=== PATIENT | male | born 1980 | race American Indian/Alaskan Native ===

== ENCOUNTER 2018-01-14 03:39 | Observation (INO) | payer OTHER ==
[2018-01-14] MEDS ORDERED: Sodium Chloride 0.9% 1,000 ML IV STA (04:01)
--- NOTE | 2018-01-14 04:15 | ED PDOC ---
Arrival/HPI - General Chief Complaint: Abdominal Pain Time Seen by Provider: 01/14/18 04:01 Historian: Patient - History of Present Illness Narrative History of Present Illness (Text): 01/14/18 03:50 37 year old male with no significant past medical history, presents to the emergency department complaining of abdominal pain that began 5 days ago. Patient states the pain began at the upper quadrant of the abdomen and now the pain is focused on the lower quadrant of the abdomen. The pain is worse in the right lower quadrant. Patient denies any fever, chills, chest pain, shortness of breath, nausea, vomiting, diarrhea, constipation, bloody stool, urinary symptoms, back pain, neck pain, headache, dizziness, or any other complaints. Time/Duration: 24 hours Symptom Onset: Sudden Symptom Course: Unchanged Activities at Onset: Light Context: Home Past Medical History - Provider Review Nursing Documentation Reviewed: Yes - Infectious Disease Hx of Infectious Diseases: None - Psychiatric Hx Substance Use: No - Surgical History Other/Comment: rt knee sx - Anesthesia Hx Anesthesia: Yes Hx Anesthesia Reactions: No Family/Social History - Physician Review Nursing Documentation Reviewed: Yes Family/Social History: No Known Family HX Smoking Status: Never Smoked Hx Alcohol Use: Yes Hx Substance Use: No Allergies/Home Meds Allergies/Adverse Reactions: Allergies No Known Allergies Allergy (Verified 02/22/16 12:09) Home Medications: Home Meds Medication Instructions Recorded Confirmed No Known Home Med 01/14/18 01/14/18 Review of Systems - Physician Review All systems were reviewed & negative as marked: Yes - Review of Systems Constitutional: absent: Fevers, Other (Chills) Respiratory: absent: SOB Cardiovascular: absent: Chest Pain Gastrointestinal: Abdominal Pain. absent: Constipation, Diarrhea, Nausea, Vomiting, Hematochezia Genitourinary Male: absent: Dysuria, Frequency, Hematuria Musculoskeletal: absent: Back Pain, Neck Pain Neurological: absent: Headache, Dizziness Physical Exam Vital Signs Reviewed: Yes Vital Signs Temp Pulse Resp BP Pulse Ox 01/14/18 03:47 98.1 F 72 18 158/93 H 97 Temperature: Afebrile Blood Pressure: Hypertensive Pulse: Regular Respiratory Rate: Normal Appearance: Positive for: Well-Appearing, Non-Toxic, Comfortable Pain Distress: None Mental Status: Positive for: Alert and Oriented X 3 - Systems Exam Head: Present: Atraumatic, Normocephalic Pupils: Present: PERRL Extroacular Muscles: Present: EOMI Conjunctiva: Present: Normal Mouth: Present: Moist Mucous Membranes Neck: Present: Normal Range of Motion Respiratory/Chest: Present: Clear to Auscultation, Good Air Exchange. No: Respiratory Distress, Accessory Muscle Use Cardiovascular: Present: Regular Rate and Rhythm, Normal S1, S2. No: Murmurs Abdomen: Present: Tenderness (Right Lower Quadrant tenderness ), Normal Bowel Sounds. No: Distention, Peritoneal Signs Back: Present: Normal Inspection Upper Extremity: Present: Normal Inspection. No: Cyanosis, Edema Lower Extremity: Present: Normal Inspection. No: Edema Neurological: Present: GCS=15, CN II-XII Intact, Speech Normal Skin: Present: Warm, Dry, Normal Color. No: Rashes Psychiatric: Present: Alert, Oriented x 3, Normal Insight, Normal Concentration Medical Decision Making ED Course and Treatment: 01/14/18 04:17 Impression: 37 year old male presents complaining of abdominal pain that began 5 days ago. Pain began at the upper quadrant of abdomen and now is in the lower quadrant of the abdomen. Pain worse in the RLQ. Plan: -- CT Abd & Pelvis IV Contrast -- Labs -- Morphine, IV Fluids -- Urine Culture -- Urinalysis -- Reassess and disposition Progress Notes: 01/14/18 05:35 On reevaluation, patient is still in pain and also began to vomit. Ordered Morphine and Reglan. EXAM: CT Abdomen and Pelvis With Intravenous Contrast Dictated and Authenticated by: Lauryn Cazares MD 01/14/2018 5:56 AM IMPRESSION: Findings consistent with acute appendicitis. No perforation or abscess. Too small to characterize low-density liver lesions. No followup necessary. Small fat containing umbilical hernia 01/14/18 06:12 Case discussed with Walking Dragline Oiler and Dr. Cotto who is aware and agrees with the plan. Accepts patient into his service. - Lab Interpretations Lab Results: 01/14/18 04:30 01/14/18 04:30 Lab Results 01/14/18 04:30: Sodium 145, Potassium 3.9, Chloride 106, Carbon Dioxide 25, Anion Gap 18, BUN 13, Creatinine 1.0, Est GFR ( Amer) > 60, Est GFR (Non- Af Amer) > 60, Random Glucose 122 H, Calcium 9.2, Magnesium 1.9, Total Bilirubin 1.5 H, AST 23, ALT 40, Alkaline Phosphatase 63, Total Protein 7.7, Albumin 4.2, Globulin 3.5, Albumin/Globulin Ratio 1.2, Lipase 50 01/14/18 04:30: PT 11.2, INR 0.97, APTT 25.6 01/14/18 04:30: WBC 7.8, RBC 4.93, Hgb 14.2, Hct 40.3 L, MCV 81.7, MCH 28.8, MCHC 35.2, RDW 13.3, Plt Count 131, MPV 12.2 H, Gran % 71.6 H, Lymph % (Auto) 18.8 L, [place] % (Auto) 8.1 H, Eos % (Auto) 1.4 L, Baso % (Auto) 0.1, Gran # 5.60 , Lymph # (Auto) 1.5, [place] # (Auto) 0.6, Eos # (Auto) 0.1, Baso # (Auto) 0.01 I have reviewed the lab results: Yes - RAD Interpretation Radiology Orders: 01/14/18 04:02 ABD & PELVIS IV CONTRAST ONLY [CT] Stat - Medication Orders Current Medication Orders: Discontinued Medications Sodium Chloride (Sodium Chloride 0.9%) 1,000 mls @ 1,000 mls/hr IV .Q1H STA Stop: 01/14/18 05:00 Last Admin: 01/14/18 04:35 Dose: 1,000 mls/hr eMAR Start Stop Document 01/14/18 04:35 JOL (Rec: 01/14/18 04:36 JOL [id number]) Intravenous Solution Start Date 01/14/18 Start Time 04:36 End Date 01/14/18 End time 05:36 Total Infusion Time 60 Metoclopramide HCl (Reglan) 10 mg IVP STAT STA Stop: 01/14/18 05:35 Last Admin: 01/14/18 05:48 Dose: 10 mg IVP Administration Document 01/14/18 05:48 OCS (Rec: 01/14/18 05:48 OCS [id number]) Charges for Administration # of IVP Administrations 1 Morphine Sulfate (Morphine) 2 mg IVP STAT STA Stop: 01/14/18 04:21 Last Admin: 01/14/18 04:36 Dose: 2 mg IVP Administration Document 01/14/18 04:36 JOL (Rec: 01/14/18 04:36 [id number] Charges for Administration # of IVP Administrations 1 Morphine Sulfate (Morphine) 2 mg IVP STAT STA Stop: 01/14/18 05:35 Last Admin: 01/14/18 05:47 Dose: 2 mg IVP Administration Document 01/14/18 05:47 OCS (Rec: 01/14/18 05:48 OCS [id number]) Charges for Administration # of IVP Administrations 1 Ondansetron HCl (Zofran Inj) 4 mg IVP STAT STA Stop: 01/14/18 04:31 Last Admin: 01/14/18 04:36 Dose: 4 mg IVP Administration Document 01/14/18 04:36 JOL (Rec: 01/14/18 04:36 JOL [id number]) Charges for Administration # of IVP Administrations 1 - Scribe Statement The provider has reviewed the documentation as recorded by the Marivel Charles Provider Scribe Attestation: All medical record entries made by the Scribcharlotte were at my direction and personally dictated by me. I have reviewed the chart and agree that the record accurately reflects my personal performance of the history, physical exam, medical decision making, and the department course for this patient. I have also personally directed, reviewed, and agree with the discharge instructions and disposition. Disposition/Present on Arrival - Present on Arrival Any Indicators Present on Arrival: No History of DVT/PE: No History of Uncontrolled Diabetes: No Urinary Catheter: No History of Decub. Ulcer: No History Surgical Site Infection Following: None - Disposition Have Diagnosis and Disposition been Completed?: Yes Diagnosis: Acute appendicitis Disposition: HOSPITALIZED Disposition Time: 06:00 Condition: FAIR Forms: [email or web address] ([place])
[2018-01-14] MEDS ORDERED: Morphine 2 mg/2 mL syringe IVP STA ×2 (04:20→05:34)
[2018-01-14 04:49] LABS: GRAN % 71.6 % (50.0-68.0); HEMOGLOBIN 14.2 g/dL (14.0-18.0); MEAN CELL VOLUME 81.7 fl (80.0-105.0); MEAN CORPUSCULAR HEMOGLOBIN 28.8 pg (25.0-35.0); MEAN CORPUSCULAR HGB CONC 35.2 g/dl (31.0-37.0); MEAN PLATELET VOLUME 12.2 fl (7.0-11.0); RBC 4.93 10^6/uL (3.5-6.1); RED CELL DISTRIBUTION WIDTH 13.3 % (11.5-14.5); WHITE BLOOD COUNT 7.8 10^3/ul (4.5-11.0)
[2018-01-14 04:50] LABS: BASO # 0.01 K/mm3 (0.0-2.0); BASO % 0.1 % (0.0-3.0); EOS # 0.1 (0.0-0.7); EOS % 1.4 % (1.5-5.0); GRAN # 5.6 (1.4-6.5); LYMPH # 1.5 (1.2-3.4); LYMPH % 18.8 % (22.0-35.0); MONO # 0.6 (0.1-0.6); MONO % 8.1 % (1.0-6.0)
[2018-01-14 04:56] LABS: ALB/GLOB RATIO 1.2 (1.1-1.8); ALBUMIN 4.2 g/dL (3.0-4.8); ALT/SGPT 40 U/L (7-56); AST/SGOT 23 U/L (17-59); BLOOD UREA NITROGEN 13 mg/dL (7-21); CALCIUM 9.2 mg/dL (8.4-10.5); GFR AFRICAN-AMERICAN > 60; GFR NON-AFRICAN AMERICAN > 60; LIPASE 50 U/L (23-300)
[2018-01-14 05:30] LABS: INR 0.97 (0.93-1.08); PARTIAL THROMBOPLASTIN TIME 25.6 Seconds (25.1-36.5); PROTHROMBIN TIME 11.2 SECONDS (9.4-12.5)
--- NOTE | 2018-01-14 05:56 | CT ---
EXAM: CT Abdomen and Pelvis With Intravenous Contrast CLINICAL HISTORY: 37 years old, male; Pain; Abdominal pain; Localized; Lower; Patient HX: Pain lower abdomen, per pt most pain is in the rlq; Additional info: Rlq tenderness TECHNIQUE: Axial computed tomography images of the abdomen and pelvis with intravenous contrast. All CT scans at this facility use one or more dose reduction techniques, viz.: automated exposure control; ma/kV adjustment per patient size (including targeted exams where dose is matched to indication; i.e. head); or iterative reconstruction technique. Coronal and sagittal reformatted images were created and reviewed. CONTRAST: 150 mL of omnipaque 350 administered intravenously. COMPARISON: No relevant prior studies available. FINDINGS: Lung bases: Unremarkable. No mass. No consolidation. ABDOMEN: Liver: There are 3 mm too small to characterize low-density lesions. No mass. Gallbladder and bile ducts: Unremarkable. No calcified stones. No ductal dilation. Pancreas: Unremarkable. No mass. No ductal dilation. Spleen: Unremarkable. No splenomegaly. Adrenals: Unremarkable. No mass. Kidneys and ureters: The right kidney is normal. 1.4 cm left renal cyst. No solid mass. No hydronephrosis. Stomach and bowel: Unremarkable. No obstruction. No mucosal thickening. There is no wall thickening or pericolonic stranding to suggest colitis. PELVIS: Appendix: The appendix demonstrates marked diffuse distention measuring up to 2.3 cm, consistent with severe acute appendicitis.There is moderate inflammatory stranding. There is a small amount of free fluid in the right lower quadrant mesentery. There are phleboliths present. No perforation or abscess. Bladder: Unremarkable. No mass. Reproductive: Unremarkable as visualized. ABDOMEN and PELVIS: Intraperitoneal space: No free air. No significant fluid collection. Bones/joints: No acute fracture. No dislocation. Soft tissues: Unremarkable. Vasculature: Unremarkable. No abdominal aortic aneurysm. Lymph nodes: Unremarkable. No enlarged lymph nodes. There is a fat-containing umbilical hernia. IMPRESSION: Findings consistent with acute appendicitis. No perforation or abscess. Too small to characterize low-density liver lesions. No followup necessary. Small fat containing umbilical hernia.
[2018-01-14] MEDS ORDERED: Piperacill/Tazo 4.5gm in NS 4.5 GM/100 ML BAG IVPB STA (06:11)
[2018-01-14] MEDS ORDERED: Sodium Chloride 0.9% 1,000 ML IV ONE (06:17)
[2018-01-14] MEDS ORDERED: Morphine 4 mg/ml ISec IVP STA (06:47)
--- NOTE | 2018-01-14 07:18 | CP.PCM.HP ---
History of Present Illness - History of Present Illness History of Present Illness: Surgery: Dr. Cotto Pt is a 37M with no other PMHx who presented to [facility] with complaints of abdominal pain x 3 days. Pt states he started having epigastric pain on Tuesday with associated N/V that improved with some advil, however yesterday pain localized to the RLQ & woke him up from sleep. He describes the pain as gnawing, sharp pain in the RLQ with radiation to the LRQ. States he has never had a similar episode in the past. He denies vomiting but admits to nausea. Denies F/C, diarrhea, chest pain or SOB. In the ER, pt had CT abdomen/pelvis which showed dilated appendix with surrounding inflammation and large appendicolith. Surgery called to evaluate. Currently pt is resting in ER bed. States pain is still present & about the same in intensity. Denies any other complaints. PMHx: denies PSHx: R knee surgery SocialHx: deneis smoking/drugs, social EtOH FamHx: not relevant All: denies Present on Admission - Present on Admission Any Indicators Present on Admission: No Review of Systems - Review of Systems All systems: reviewed and no additional remarkable complaints except (as per HPI ) Past Patient History - Infectious Disease Hx of Infectious Diseases: None - Past Social History Smoking Status: Never Smoked - PSYCHIATRIC Hx Substance Use: No - SURGICAL HISTORY Other/Comment: rt knee sx - ANESTHESIA Hx Anesthesia: Yes Hx Anesthesia Reactions: No Meds Allergies/Adverse Reactions: Allergies Allergy/AdvReac Type Severity Reaction Status Date / Time No Known Allergies Allergy Verified 02/22/16 12:09 Physical Exam - Constitutional Appears: Well, No Acute Distress - Head Exam Head Exam: ATRAUMATIC, NORMOCEPHALIC - Eye Exam Eye Exam: Normal appearance - ENT Exam ENT Exam: Mucous Membranes Moist - Respiratory Exam Respiratory Exam: NORMAL BREATHING PATTERN - Cardiovascular Exam Cardiovascular Exam: RRR - GI/Abdominal Exam GI & Abdominal Exam: Guarding, Rebound (LLQ ), Soft, Tenderness (RLQ ). absent : Distended - Extremities Exam Extremities exam: Positive for: full ROM, pedal pulses present - Neurological Exam Neurological exam: Alert, Oriented x3 - Skin Skin Exam: Dry, Warm Results - Vital Signs Recent Vital Signs: Last Vital Signs Temp 98.4 F 01/14/18 06:19 Pulse 67 01/14/18 06:19 Resp 18 01/14/18 06:19 BP 150/94 H 01/14/18 06:19 Pulse Ox 96 01/14/18 06:19 - Labs Result Diagrams: 01/14/18 04:30 01/14/18 04:30 - Imaging and Cardiology CT scan - abdomen Status: Image reviewed by me, Report reviewed by me Assessment & Plan - Assessment and Plan (Free Text) Assessment: 37M with acute appendicitis Plan: - NPO, IVF - IV ABX - OR today for lap appy - d/w Dr. Yadiel Koenig, PGY-3
[2018-01-14] MEDS ORDERED: Morphine 4 mg/ml ISec IVP PRN ×2 (07:26→11:16)
[2018-01-14] MEDS ORDERED: Lactated Ringer's 1,000 ML IV SCH ×2 (07:30→11:15)
[2018-01-14 07:34] LABS: URINE BILIRUBIN NEGATIVE (NEGATIVE); URINE BLOOD TRACE-INTACT (NEGATIVE); URINE GLUCOSE (UA) NEGATIVE (NEGATIVE); URINE LEUKOCYTE ESTERASE NEGATIVE Leu/uL (NEGATIVE); URINE PROTEIN NEGATIVE mg/dL (<30 mg/dL); URINE UROBILINOGEN 0.2 E.U./dL (<1 E.U./dL)
[2018-01-14 07:35] LABS: URINE APPEARANCE CLEAR (CLEAR); URINE COLOR LIGHT YELLOW (YELLOW)
[2018-01-14 07:59] VITALS: BMI 36.6
[2018-01-14 08:05] LABS: URINE RBC NEGATIVE /hpf (0-2); URINE WBC 0 - 2 /hpf (0-6)
[2018-01-14] MEDS ORDERED: Bupivacaine 0.5% Inj(30mL) ONE (09:03)
[2018-01-14] MEDS ORDERED: Propofol 10 mg/ml Inj (20 ML) ONE (09:20)
[2018-01-14] MEDS ORDERED: Rocuronium 10 mg/ml (5 ml) ONE (09:20)
[2018-01-14] MEDS ORDERED: Midazolam 2 MG/2 ML VIAL ONE (09:20)
[2018-01-14] MEDS ORDERED: Bupivacaine 0.5% Inj(30mL) IJ ONE (10:10)
[2018-01-14] MEDS ORDERED: Neostigmine Methylsulfate 3mg/3ml Syringe IV ONE (10:49)
[2018-01-14] MEDS ORDERED: Glycopyrrolate 0.2 mg/ml (2ml vial) ONE (10:50)
[2018-01-14] MEDS ORDERED: HYDROmorphone 0.5 mg/0.5 ml ISec IVP PRN ×2 (11:13→11:18)
--- NOTE | 2018-01-14 11:14 | PCM.SURG1 ---
Surgeon's Initial Post Op Note - Surgeon's Notes Surgeon: Dr. Cotto Horse Show Judge: Marie Carmen, PGY2 Type of Anesthesia: General Endo Anesthesia Administered By: Dr. Pedroza and Dr. Taylor Pre-Operative Diagnosis: Acute appendicitis Operative Findings: pre-op clear fluid in the pelvis, no fecal fluid, a dilated , erythematous appendix with hard mass inside the appendiceal lumen at the base of the appendix. See full operative report Post-Operative Diagnosis: same Operation Performed: laparoscopic appendectomy Specimen/Specimens Removed: appendix Estimated Blood Loss: EBL {In ML}: 10 Post-Op Condition: Fair Date of Surgery/Procedure: 01/14/18 Time of Surgery/Procedure: 09:30
[2018-01-14] MEDS ORDERED: Oxycodone/Acetaminophen 5/325 mg Tab PO PRN (11:15)
--- NOTE | 2018-01-14 12:27 | CARD ---
APPROVED REPORT EKG Measurement Heart [id number] <Conclusion> Normal sinus rhythm Normal ECG
[2018-01-14] MEDS ORDERED: Piperacill/Tazo 4.5gm in NS 4.5 GM/100 ML BAG IVPB ONE (12:30)
[2018-01-14 16:28] VITALS: O2SAT 98
--- NOTE | 2018-01-15 07:50 | CP.PCM.DIS ---
Provider - Provider Date of Admission: 01/14/18 06:12 Attending physician: Hal Cotto MD Primary care physician: NO PRIMARY CARE PROVIDER Time Spent in preparation of Discharge (in minutes): 35 Diagnosis - Discharge Diagnosis (1) Acute appendicitis Status: Acute Priority: High Onset Date: ~01/10/18 Hospital Course - Lab Results Lab Results: Most Recent Lab Values WBC 7.8 10^3/ul (4.5-11.0) 01/14/18 04:30 RBC 4.93 10^6/uL (3.5-6.1) 01/14/18 04:30 Hgb 14.2 g/dL (14.0-18.0) 01/14/18 04:30 Hct 40.3 % (42.0-52.0) L 01/14/18 04:30 MCV 81.7 fl (80.0-105.0) 01/14/18 04:30 MCH 28.8 pg (25.0-35.0) 01/14/18 04:30 MCHC 35.2 g/dl (31.0-37.0) 01/14/18 04:30 RDW 13.3 % (11.5-14.5) 01/14/18 04:30 Plt Count 131 10^3/uL (120.0-450.0) 01/14/18 04:30 MPV 12.2 fl (7.0-11.0) H 01/14/18 04:30 Gran % 71.6 % (50.0-68.0) H 01/14/18 04:30 Lymph % (Auto) 18.8 % (22.0-35.0) L 01/14/18 04:30 [place] % (Auto) 8.1 % (1.0-6.0) H 01/14/18 04:30 Eos % (Auto) 1.4 % (1.5-5.0) L 01/14/18 04:30 Baso % (Auto) 0.1 % (0.0-3.0) 01/14/18 04:30 Gran # 5.60 (1.4-6.5) 01/14/18 04:30 Lymph # (Auto) 1.5 (1.2-3.4) 01/14/18 04:30 [place] # (Auto) 0.6 (0.1-0.6) 01/14/18 04:30 Eos # (Auto) 0.1 (0.0-0.7) 01/14/18 04:30 Baso # (Auto) 0.01 K/mm3 (0.0-2.0) 01/14/18 04:30 PT 11.2 SECONDS (9.4-12.5) 01/14/18 04:30 INR 0.97 (0.93-1.08) 01/14/18 04:30 APTT 25.6 Seconds (25.1-36.5) 01/14/18 04:30 Sodium 145 mmol/L (132-148) 01/14/18 04:30 Potassium 3.9 mmol/L (3.6-5.0) 01/14/18 04:30 Chloride 106 mmol/L (98-107) 01/14/18 04:30 Carbon Dioxide 25 mmol/L (21-33) 01/14/18 04:30 Anion Gap 18 (10-20) 01/14/18 04:30 BUN 13 mg/dL (7-21) 01/14/18 04:30 Creatinine 1.0 mg/dl (0.8-1.5) 01/14/18 04:30 Est GFR ( Amer) > 60 01/14/18 04:30 Est GFR (Non-Af Amer) > 60 01/14/18 04:30 Random Glucose 122 mg/dL (70-110) H 01/14/18 04:30 Calcium 9.2 mg/dL (8.4-10.5) 01/14/18 04:30 Magnesium 1.9 mg/dL (1.7-2.2) 01/14/18 04:30 Total Bilirubin 1.5 mg/dL (0.2-1.3) H 01/14/18 04:30 AST 23 U/L (17-59) 01/14/18 04:30 ALT 40 U/L (7-56) 01/14/18 04:30 Alkaline Phosphatase 63 U/L (38-126) 01/14/18 04:30 Total Protein 7.7 g/dL (5.8-8.3) 01/14/18 04:30 Albumin 4.2 g/dL (3.0-4.8) 01/14/18 04:30 Globulin 3.5 gm/dL 01/14/18 04:30 Albumin/Globulin Ratio 1.2 (1.1-1.8) 01/14/18 04:30 Lipase 50 U/L (23-300) 01/14/18 04:30 Urine Color Light yellow (YELLOW) 01/14/18 06:50 Urine Appearance Clear (CLEAR) 01/14/18 06:50 Urine pH 6.0 (4.7-8.0) 01/14/18 06:50 Ur Specific [place] <= 1.005 (1.005-1.035) 01/14/18 06:50 Urine Protein Negative mg/dL (<30 mg/dL) 01/14/18 06:50 Urine Glucose (UA) Negative mg/dL (NEGATIVE) 01/14/18 06:50 Urine Ketones Negative mg/dL (NEGATIVE) 01/14/18 06:50 Urine Blood Trace-intact (NEGATIVE) H 01/14/18 06:50 Urine Nitrate Negative (NEGATIVE) 01/14/18 06:50 Urine Bilirubin Negative (NEGATIVE) 01/14/18 06:50 Urine Urobilinogen 0.2 E.U./dL (<1 E.U./dL) 01/14/18 06:50 Ur Leukocyte Esterase Negative [place]/uL (NEGATIVE) 01/14/18 06:50 Urine RBC Negative /hpf (0-2) 01/14/18 06:50 Urine WBC 0 - 2 /hpf (0-6) 01/14/18 06:50 Ur Epithelial Cells None /hpf (0-5) 01/14/18 06:50 Blood Type AB POSITIVE 01/14/18 06:03 Blood Type Confirm AB POSITIVE 01/14/18 06:57 Antibody Screen Negative 01/14/18 06:03 BBK History Checked No verified bt 01/14/18 06:03 - Hospital Course Hospital Course: Pt is a 37 y/o Male with right lower quadrant abdominal pain for 4 days who was diagnosed with acute appendicitis. Patient was taken to the OR for laparoscopic appendectomy, which he tolerated well. Patient was able to eat regular diet with minimal pain controlled with PO ibuprofen, ambulating and voiding freely by the evening of the day of surgery. Patient was discharged the next AM with instructions to take OTC pain medication and follow up with Dr. Cotto in his office in 1-2 weeks Discharge Exam - Head Exam Head Exam: ATRAUMATIC, NORMOCEPHALIC - Eye Exam Eye Exam: Normal appearance. absent: Conjunctival injection, Scleral icterus - ENT Exam ENT Exam: Mucous Membranes Moist, Normal Oropharynx - Respiratory Exam Respiratory Exam: NORMAL BREATHING PATTERN. absent: Accessory Muscle Use, UNREMARKABLE - Cardiovascular Exam Cardiovascular Exam: RRR - GI/Abdominal Exam GI & Abdominal Exam: Soft, Tenderness (appropriate RLQ tenderness and caleb- incisional tenderness). absent: Distended - Extremities Exam Extremities exam: normal inspection - Neurological Exam Neurological exam: Alert, Oriented x3 - Psychiatric Exam Psychiatric exam: Normal Affect, Normal Mood - Skin Skin Exam: Dry, Intact, Normal Color, Warm Discharge Plan - Follow Up Plan Condition: FAIR Disposition: HOME/ ROUTINE Instructions: Appendectomy, Laparoscopic Surgery (DC) Additional Instructions: Call to schedule an appointment for follow up in Dr. Cotto's office in 1-2 weeks Resume normal diet, may shower but do not soak incisions, glue will fall off on it's own, do not try to remove. You have no stitches to be removed Do not lift more than 10 pounds for [address] Cotto clears you If you have fevers, chills, nausea, vomiting or any other concerning symptoms call Dr. Cotto's office or come to ER Take ibuprofen or tylenol with food for pain Referrals: PCP,NO [Primary Care Provider] - Hal Cotto MD [Staff Provider] -
[2018-01-15 08:04] VITALS: BP 106/63; PULSE 62; RESP 20; TEMP 98.1
[2018-01-15] MEDS ORDERED: Enoxaparin 40 mg Syringe SC SCH (10:00)
--- NOTE | 2018-01-17 08:43 | OP ---
PROCEDURE DATE: 01/14/2018 PREOPERATIVE DIAGNOSIS: Acute appendicitis. POSTOPERATIVE DIAGNOSIS: Acute appendicitis. OPERATIONS PERFORMED: Laparoscopic cholecystectomy and repair of umbilical hernia. DESCRIPTION OF PROCEDURE: Preoperatively, the patient was noted to have a CAT scan markedly abnormal with two large fecaliths in the appendix with fluid in the pelvis and inflammation around the appendix. Normal white count though. Pain has been going on for 3 days. A time-out was achieved and the patient was identified by name, name of the procedure, laterality, my eduardo, the consent, and his wristband. The abdomen was prepped and draped with chlorhexidine. After waiting 3 minutes, it was draped. Steiner having been placed because he was unable to void. The abdomen was then entered with a Veress needle in the supraumbilical incision after injected with Marcaine. The initial one was unsuccessful, the second one was straightforward, 2.5 L of CO2 insufflated to a pressure of about 5. A Visiport was placed that went right into the umbilicus without issue. Circumferential observation was unremarkable. The tip of the appendix was found in the right lower quadrant. A suprapubic 5 and a left lower quadrant 5 were placed to the point of election. Using a 10 mm scope, tip of the appendix was brought up, but it was very inflamed and very hard to hold. It was not perforated, but there was fluid in the pelvis. Serially following it down, the mesentery was eventually seen. The distal ileum was identified, pushed away, and the mesentery identified using a blunt dissection with a right angle and a [place]. The mesentery was serially taken down. It eventually became very close to the cecum, but was by about 1 cm. The anterior bulge was taken down serially under direct vision using a harmonic scalpel and eventually the base of the appendix was found. It was very difficult, required multiple resetting with the clamps. Using a 5 mm scope, the Endo VINNY was taken pulling up on the appendix to get right on the cecum. It was placed and then replaced making sure that the stapler was beyond the tissue. It was fired, the entire appendix was removed, placed in a bag, then removed with some dilation of the umbilicus. Fluid was aspirated. There was very little bleeding and it was identified that there was no stump, and there was a good seal. It was irrigated and dried. The CO2 was removed after evaluating the abdomen which was benign. The umbilicus was closed with two stitches using and 2-0 Vicryl. The wound was injected with Marcaine and subcuticular stitches were placed. The patient was taken to the recovery room in good condition after sponge and needle count was declared correct. Hal Cotto MD
== END 2018-01-15 11:42 | disposition home or self-care (01) ==
LOC: ED 03:39 → INTOOBSV 06:12 → ERH 06:12 → 3RNO 07:17
PROVIDERS: ADMIT Surgery; ATTEND Surgery
DX: K35.80 Unspecified acute appendicitis (principal); K42.9 Umbilical hernia without obstruction or gangrene
CPT/HCPCS: 47562; 49652; 74177; 80053; 81001; 83690; 83735; 85025; 85610; 85730; 86850; 86900; 87086; 88304; 93005; 96361; 96365; 96372; 96375; 96376; 99285; G0378; J1650; J1885; J2001; J2250; J2270; J2405; J2543; J2704; J2710; J2765; J3010; J7030; Q9967